=== PATIENT | female | born 1945 | race Caucasian/White ===

== ENCOUNTER 2016-12-02 11:06 | Outpatient (CLI) | payer MEDICARE, OTHER | END 2016-12-02 11:07 | disposition home or self-care (01) | DX: M16.12 Unilateral primary osteoarthritis, left hip (principal) ==

== ENCOUNTER 2017-01-14 06:03 | Day surgery (SDC) | payer MEDICARE, OTHER ==
[2017-01-14] MEDS ORDERED: LACTATED RINGERS 500 ML IV ONE (06:35)
[2017-01-14] MEDS ORDERED: TROPICAMIDE 1% OPHTH 2 ML DROPS OPTH ONE (06:43)
[2017-01-14] MEDS ORDERED: KETOROLAC 0.45% OPHTH DROPS OPTH ONE (06:43)
[2017-01-14] MEDS ORDERED: CYCLOPENTOLATE 1% OPHTH DROPS 2 ML OPTH ONE (06:43)
[2017-01-14] MEDS ORDERED: fentaNYL 100 MCG/2 ML VIAL IVP ONE (07:05)
[2017-01-14] MEDS ORDERED: MIDAZOLAM 2 MG/2 ML VIAL IVP ONE (07:05)
[2017-01-14] MEDS ORDERED: NEOMYCIN/POLYMYX/DEXAMETH OPHTH OINT OPTH ONE (07:43)
[2017-01-14] MEDS ORDERED: BRIMONIDINE 0.2% OPHTH DROPS 5 ML OPTH ONE (07:43)
[2017-01-14] MEDS ORDERED: EPINEPHrine 1 MG/ML AMP IO ONE (07:43)
[2017-01-14] MEDS ORDERED: PROPARACAINE 0.5% OPHTH DROPS 15 ML OPTH ONE (07:43)
[2017-01-14] MEDS ORDERED: TETRACAINE 0.5% OPHTH DROPS 4 ML LEFTEYE ONE (07:44)
[2017-01-14] MEDS ORDERED: BSS/LIDOCAINE/EPINEPHRINE 1 ML SYRINGE IO ONE ×2 (07:44)
[2017-01-14] MEDS ORDERED: CHONDR SULF/HYALURONATE SYRINGE IO ONE (07:44)
== END 2017-01-14 06:04 | disposition home or self-care (01) ==
PROC: 08RK3JZ Replacement of Left Lens with Synthetic Substitute, Percutaneous Approach (ICD-10-PCS; principal; 2017-01-14 07:30)
DX: E11.36 Type 2 diabetes mellitus with diabetic cataract (principal); H25.12 Age-related nuclear cataract, left eye; J44.9 Chronic obstructive pulmonary disease, unspecified; Z79.84 Long term (current) use of oral hypoglycemic drugs; Z90.49 Acquired absence of other specified parts of digestive tract; Z95.5 Presence of coronary angioplasty implant and graft; Z79.82 Long term (current) use of aspirin; Z87.891 Personal history of nicotine dependence; Z95.0 Presence of cardiac pacemaker
CPT/HCPCS: 66984; V2632

== ENCOUNTER 2017-06-15 11:38 | Day surgery (SDC) | payer MEDICARE, OTHER ==
[2017-06-15] MEDS ORDERED: LACTATED RINGERS 1,000 ML IV ONE (12:45)
[2017-06-15] MEDS ORDERED: fentaNYL 100 MCG/2 ML VIAL IVP ONE (14:08)
[2017-06-15] MEDS ORDERED: MIDAZOLAM 2 MG/2 ML VIAL IVP ONE (14:08)
[2017-06-15 15:18] VITALS: BP 102/70
== END 2017-06-15 11:39 | disposition home or self-care (01) ==
LOC: SDS 11:38
PROVIDERS: ATTEND Surgery
PROC: 0DJD8ZZ Inspection of Lower Intestinal Tract, Via Natural or Artificial Opening Endoscopic (ICD-10-PCS; principal; 2017-06-15 13:15)
DX: Z85.048 Personal history of other malignant neoplasm of rectum, rectosigmoid junction, and anus (principal); Z95.0 Presence of cardiac pacemaker; E11.9 Type 2 diabetes mellitus without complications; I50.9 Heart failure, unspecified; J45.909 Unspecified asthma, uncomplicated; Z79.02 Long term (current) use of antithrombotics/antiplatelets; Z87.891 Personal history of nicotine dependence
CPT/HCPCS: 44388; J7120

== ENCOUNTER 2017-10-20 09:27 | Outpatient (CLI) | payer MEDICARE, OTHER, MEDICAID ==
[2017-10-20 09:56] LABS: BASOPHILS # (AUTO) 0.1 10^3/uL (0.0-0.1); BASOPHILS % (AUTO) 1.2 %; EOSINOPHILS # (AUTO) 0.2 10^3/uL (0.0-0.7); EOSINOPHILS % (AUTO) 2.3 %; HGB - HEMOGLOBIN 12.9 g/dL (12.0-16.0); LYMPHOCYTES # (AUTO) 1.5 10^3/uL (1.5-3.5); LYMPHOCYTES % (AUTO) 13.6 %; MEAN CORPUSCULAR HEMOGLOBIN 28.5 pg (27.0-31.0); MEAN CORPUSCULAR HGB CONC 32.6 g/dL (32.0-36.0); MEAN CORPUSCULAR VOLUME 87.5 fL (81.0-99.0); MEAN PLATELET VOLUME 8.8 fL (7.9-10.8); MONOCYTES # (AUTO) 0.7 10^3/uL (0.0-1.0); MONOCYTES % (AUTO) 6.9 %; NEUTROPHILS # (AUTO) 8.1 10^3/uL (1.5-6.6); PLT - PLATELET COUNT 232 10^3/uL (130-450); RED BLOOD COUNT 4.52 10^6/uL (4.20-5.40); RED CELL DISTRIBUTION WIDTH 15.2 % (12.0-15.0); WHITE BLOOD COUNT 10.7 x10^3/uL (4.8-10.8)
[2017-10-20 10:12] LABS: ALBUMIN 3.7 g/dL (3.2-5.5); ALKALINE PHOSPHATASE 71 IU/L (42-121); ALT ALANINE AMINOTRANSFERASE 13 IU/L (10-60); AST ASPARTATE AMINOTRANSFERASE 15 IU/L (10-42); BILIRUBIN,TOTAL 0.7 mg/dL (0.2-1.0); BUN - BLOOD UREA NITROGEN 14 mg/dL (6-20); CALCIUM 9.6 mg/dL (8.5-10.3); CARBON DIOXIDE - CO2 24 mmol/L (21-32); CHLORIDE 102 mmol/L (101-111); CHOL/HDL RATIO 2.5 (<4.4); CHOLESTEROL 121 mg/dL; CREATININE 0.6 mg/dL (0.4-1.0); GFR - MDRD 98 (>89); GLUCOSE 198 mg/dL (70-100); HB2 TOTAL 14.3 g/dL; HDL CHOLESTEROL 49 mg/dL; HEMOGLOBIN A1C 0.99 g/dL; HEMOGLOBIN A1C % 8.5 % (4.6-6.2); LDL CHOLESTEROL,CALCULATED 53 mg/dL; LDL/HDL RATIO 1.1 (<4.4); SODIUM 137 mmol/L (135-145); TOTAL PROTEIN 7.3 g/dL (6.7-8.2); VLDL CHOLESTEROL 19 mg/dL
== END 2017-10-20 09:28 | disposition home or self-care (01) ==
LOC: LAB 09:27
PROVIDERS: ATTEND Physician Assistant
DX: R73.9 Hyperglycemia, unspecified (principal); R60.9 Edema, unspecified; E78.5 Hyperlipidemia, unspecified; I50.9 Heart failure, unspecified
CPT/HCPCS: 36415; 80053; 80061; 83036; 83721; 83880; 84443; 85025

== ENCOUNTER 2017-11-03 13:32 | Outpatient (CLI) | payer MEDICARE, OTHER, MEDICAID | END 2017-11-03 13:33 | disposition home or self-care (01) | LOC: DI 13:32 | PROVIDERS: ATTEND Physician Assistant | DX: R06.02 Shortness of breath (principal); R63.5 Abnormal weight gain; I50.9 Heart failure, unspecified; R00.0 Tachycardia, unspecified | CPT/HCPCS: 93306 ==

== ENCOUNTER 2017-11-03 13:34 | Outpatient (CLI) | payer MEDICARE, OTHER, MEDICAID ==
[2017-11-03] MEDS ORDERED: IOPAMIDOL-300 100 ML VIAL IVP ONE (18:53)
--- NOTE | 2017-11-04 10:12 | CT Report ---
CT OF THE ABDOMEN WITH AND WITHOUT CONTRAST: 11/03/2017 CLINICAL INDICATION: History of rectal cancer, hypodense nodule in the pancreas. COMPARISON: CT 07/09/2017. TECHNIQUE: Axial CT images of the abdomen were obtained prior to and following 100 mL Isovue 300 intravenously, with images obtained in early arterial and portovenous phase enhancement. FINDINGS: On the unenhanced scan, there is no evidence of pancreatic calcifications. The hypodense nodule in the proximal body of the pancreas is again seen, now measuring 2.7 x 1.5 cm on the arterial phase of enhancement, previously 1.6 x 1.3 cm. A left adrenal adenoma is stable. The liver, spleen, kidneys and right adrenal gland are unremarkable. The patient is status post cholecystectomy. No bowel dilatation, free gas, or free fluid is present. There is a hernia into the left lower quadrant ostomy site, containing nonobstructed loops of small bowel. No free fluid, free gas, or abdominal adenopathy is appreciated. IMPRESSION: INTERVAL INCREASE IN SIZE OF HYPODENSE NODULE IN THE MID BODY OF THE PANCREAS. INTERVAL DEVELOPMENT OF SMALL BOWEL HERNIATION INTO THE LEFT LOWER QUADRANT OSTOMY SITE. In accordance with CT protocol optimization, one or more of the following dose reduction techniques were utilized for this exam: automated exposure control, adjustment of mA and/or KV based on patient size, or use of iterative reconstructive technique. TD: 11/04/2017 10:10
== END 2017-11-03 13:35 | disposition home or self-care (01) ==
LOC: DI 13:34
PROVIDERS: ATTEND Internal Medicine
DX: C20 Malignant neoplasm of rectum (principal); K86.9 Disease of pancreas, unspecified; K46.9 Unspecified abdominal hernia without obstruction or gangrene
CPT/HCPCS: 74160

== ENCOUNTER 2017-11-03 13:40 | Outpatient (CLI) | payer MEDICARE, OTHER, MEDICAID ==
[2017-11-03] MEDS ORDERED: IOPAMIDOL-300 100 ML VIAL ONE (13:52)
--- NOTE | 2017-11-04 10:06 | CT Report ---
CT CHEST WITH CONTRAST: 11/03/2017 CLINICAL INDICATION: Rectal cancer, shortness of breath, pain. TECHNIQUE: Axial CT images of the chest were obtained with 100 mL Isovue 300 intravenously. COMPARISON: 12/22/2015. FINDINGS: The heart and great vessels demonstrate atherosclerotic calcification. No hilar or mediastinal lymphadenopathy is present. The lungs are clear. No pulmonary nodule or mass lesion is seen. No effusion or pneumothorax is present. Osseous structures demonstrate degenerative changes. IMPRESSION: NO EVIDENCE OF PULMONARY METASTATIC DISEASE. NO EVIDENCE OF ACUTE CARDIOPULMONARY DISEASE. In accordance with CT protocol optimization, one or more of the following dose reduction techniques were utilized for this exam: automated exposure control, adjustment of mA and/or KV based on patient size, or use of iterative reconstructive technique. TD: 11/04/2017 10:05
== END 2017-11-03 13:41 | disposition home or self-care (01) ==
LOC: DI 13:40
PROVIDERS: ATTEND Physician Assistant
DX: R06.02 Shortness of breath (principal); C20 Malignant neoplasm of rectum; K86.9 Disease of pancreas, unspecified; K46.9 Unspecified abdominal hernia without obstruction or gangrene; R63.5 Abnormal weight gain; I50.9 Heart failure, unspecified; R00.0 Tachycardia, unspecified; K22.8 Other specified diseases of esophagus
CPT/HCPCS: 71260; 74160; 93306; Q9967

== ENCOUNTER 2017-11-21 12:30 | Outpatient (CLI) | payer MEDICARE, OTHER, MEDICAID ==
--- NOTE | 2017-11-22 09:18 | CT Report ---
EXAM: CT SINUS EXAM DATE: 11/21/2017 01:39 PM. HISTORY: Chronic sinusitis. COMPARISONS: 01/04/2015. TECHNIQUE: Routine multi-axial CT imaging performed through the sinuses. Iodinated IV contrast: None. Reconstructions: Coronal and sagittal. In accordance with CT protocol optimization, one or more of the following dose reduction techniques w ere utilized for this exam: automated exposure control, adjustment of mA and/or KV based on patient s ize, or use of iterative reconstructive technique. FINDINGS: RIGHT Frontal: Normal. Ethmoid: Partial opacification of 2 posterior right ethmoid air cells, as before. Maxillary: Normal. Sphenoid: Minimal mucosal thickening posteriorly in the lateral recess, as before. Drainage Pathways: Frontoethmoidal and sphenoethmoidal recesses are patent. Right uncinectomy normall y aerated, as before. LEFT Frontal: Normal. Ethmoid: Normal. Maxillary: Minimal mucosal thickening anteriorly inferiorly, as before. Sphenoid: Normal. Drainage Pathways: Frontoethmoidal and sphenoethmoidal recesses are patent. Left uncinectomy normally aerated, as before. Nasal Cavity: Normal. No mass or significant anatomic abnormality evident. Osseous Structures: Unremarkable. Orbits: Unremarkable. Other: None. IMPRESSION: 1. Bilateral uncinectomy, as before. 2. Partial opacification of 2 right posterior ethmoid air cells, as before. 3. Minimal mucosal thickening in the right ethmoid and left maxillary sinuses, as before. 4. No new findings. [facility] Referring Provider Line: [phone] SITE ID: [id number]
== END 2017-11-21 12:31 | disposition home or self-care (01) ==
LOC: DI 12:30
PROVIDERS: ATTEND Otolaryngology
DX: J32.8 Other chronic sinusitis (principal); R51 Headache; R09.82 Postnasal drip
CPT/HCPCS: 70486

== ENCOUNTER 2018-01-16 04:36 | Outpatient (CLI) | payer MEDICARE, OTHER, MEDICAID | END 2018-01-16 04:37 | disposition critical access hospital (66) | LOC: EMS 04:36 | PROVIDERS: ATTEND Surgery | DX: R61 Generalized hyperhidrosis (principal); R11.0 Nausea; R03.0 Elevated blood-pressure reading, without diagnosis of hypertension | CPT/HCPCS: A0425; A0429 ==

== ENCOUNTER 2018-01-16 04:41 | Emergency (ER) | payer MEDICARE, OTHER, MEDICAID ==
--- NOTE | 2018-01-16 04:58 | ED Physician Documentation ---
History of Present Illness - Stated complaint Stated Complaint: NAUSEATED - Chief complaint Chief Complaint: General - History obtained from History obtained from: Patient, EMS - History of Present Illness Timing: Today Improved by: no ameliorating factors Worsened by: no exacerbating factors - Additonal information Additional information: awoke this morning with mild nausea, left shoulder pain, and diaphoresis. Took her blood pressure and had readings 200s/100s, similarly high on recheck. Called 911, and medics found blood sugar was 226, blood pressure 160/102. Patient has h/o PR with cor. art. stent, PPM Review of Systems Constitutional: reports: Sweats. denies: Fever, Chills Cardiac: reports: Chest pain / pressure (left shoulder pain, not chest pain per se) Respiratory: reports: Reviewed and negative GI: reports: Nausea. 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 Cardiovascular: Coronary stent, Pacemaker HEENT: Tonsil/Adenoidectomy - Present Medications Home Medications: Ambulatory Orders Medication Instructions Recorded Confirmed Lisinopril [Zestril] 20 mg PO DAILY 08/13/13 01/16/18 Multivitamin [Multivitamins] 1 each PO DAILY 05/23/14 01/16/18 Aspirin [Aspir 81] 81 mg PO DAILY 03/08/15 01/16/18 Carvedilol [Coreg] 25 mg PO BID 06/15/17 01/16/18 Docusate Sodium 1 mg PO DAILY 01/16/18 01/16/18 LORazepam [Ativan] 1 mg PO Q6H 01/16/18 01/16/18 Lisinopril 1 mg PO DAILY 01/16/18 01/16/18 PARoxetine [Paxil] 10 mg PO DAILY 01/16/18 01/16/18 Sertraline [Zoloft] 1 mg PO DAILY 01/16/18 01/16/18 Simvastatin 1 mg PO DAILY 01/16/18 01/16/18 oxyCODONE [Roxicodone] 1 mg PO Q6H 01/16/18 01/16/18 - Allergies Allergies/Adverse Reactions: Allergies Allergy/AdvReac Type Severity Reaction Status Date / Time venom-honey bee Allergy Severe Respiratory Verified 01/16/18 04:49 [bee venom (honey bee)] - Social History Does the pt smoke?: No Smoking Status: Never smoker Does the pt drink ETOH?: No Does the pt have substance abuse?: No - Immunizations Immunizations are current?: Yes - POLST Patient has POLST: No POLST Status: Limited Interventions PD ED PE NORMAL - Vitals Vital signs reviewed: Yes - General General: Alert and oriented X 3, No acute distress, Well developed/nourished - HEENT HEENT: Moist mucous membranes - Neck Neck: Supple, no meningeal sign - Cardiac Cardiac: RRR, No murmur, No gallop, No rub - Respiratory Respiratory: No respiratory distress, Clear bilaterally - Abdomen Abdomen: Soft, Non distended, Other (epigastric tenderness (patient says this is not new and is due to a pancreatic problem that is going to be surgically addressed in near future). she has a colostomy bag in place) - Derm Derm: Normal color, Warm and dry, No rash - Extremities Extremities: No edema Results - Vitals Vitals: Vital Signs - 24 hr 01/16/18 01/16/18 01/16/18 04:46 04:49 05:49 Temperature 36.9 C Heart Rate 93 99 100 Respiratory 18 18 17 Rate Blood Pressure 148/99 H 145/89 H 130/76 O2 Saturation 99 100 97 01/16/18 01/16/18 06:19 06:44 Temperature Heart Rate 100 Respiratory 17 16 Rate Blood Pressure O2 Saturation 98 Oxygen O2 Source Room air - EKG (time done) No standard instances Rate: Rate (enter#) (101), Tachy Rhythm: Sinus tachycardia [place]: LAD Intervals: Normal CA, Wide QRS (NSIVCD) QRS: Normal Ischemia: Normal ST segments, Q waves (III, aVF) - Labs Labs: Laboratory Tests 01/16/18 01/16/18 01/16/18 05:15 05:15 05:15 WBC 8.9 RBC 4.51 Hgb 12.7 Hct 39.6 MCV 88.0 MCH 28.1 MCHC 31.9 L RDW 14.6 Plt Count 249 MPV 8.6 Neut # 6.7 H Lymph # 1.1 L [place] # 0.7 Eos # 0.3 Baso # 0.0 Absolute Nucleated RBC 0.01 Nucleated RBC % 0.1 Sodium 135 Potassium 4.0 Chloride 101 Carbon Dioxide 28 Anion Gap 6.0 BUN 14 Creatinine 0.6 Estimated GFR (MDRD) 98 Glucose 240 H Calcium 9.8 Troponin I < 0.04 - Rads (name of study) chest xray Radiology: Prelim report reviewed, See rad report PD MEDICAL DECISION MAKING - ED course Complexity details: reviewed old records, reviewed results, re-evaluated patient , considered differential, d/w patient Departure - Departure Disposition: 01 Home, Self Care Clinical Impression: Chest pain Qualifiers: Chest pain type: unspecified Qualified Code(s): R07.9 - Chest pain, unspecified Condition: Good Instructions: ED Chest Pain Atypical Unkn Cause Discharge Date/Time: 01/16/18 07:09
[2018-01-16 05:30] LABS: BASOPHILS % (AUTO) 0.5 %; EOSINOPHILS # (AUTO) 0.3 10^3/uL (0.0-0.7); EOSINOPHILS % (AUTO) 3.3 %; HGB - HEMOGLOBIN 12.7 g/dL (12.0-16.0); LYMPHOCYTES # (AUTO) 1.1 10^3/uL (1.5-3.5); LYMPHOCYTES % (AUTO) 12.1 %; MEAN CORPUSCULAR HEMOGLOBIN 28.1 pg (27.0-31.0); MEAN CORPUSCULAR HGB CONC 31.9 g/dL (32.0-36.0); MEAN PLATELET VOLUME 8.6 fL (7.9-10.8); MONOCYTES # (AUTO) 0.7 10^3/uL (0.0-1.0); MONOCYTES % (AUTO) 8.3 %; NEUTROPHILS # (AUTO) 6.7 10^3/uL (1.5-6.6); NEUTROPHILS % (AUTO) 75.8 %; PLT - PLATELET COUNT 249 10^3/uL (130-450); RED BLOOD COUNT 4.51 10^6/uL (4.20-5.40); RED CELL DISTRIBUTION WIDTH 14.6 % (12.0-15.0); WHITE BLOOD COUNT 8.9 x10^3/uL (4.8-10.8)
[2018-01-16 05:36] LABS: CALCIUM 9.8 mg/dL (8.5-10.3); CREATININE 0.6 mg/dL (0.4-1.0)
[2018-01-16 05:51] VITALS: BP 130/76
--- NOTE | 2018-01-16 06:14 | XRAY Report ---
EXAM: CHEST RADIOGRAPHY EXAM DATE: 01/16/2018 05:46 AM. CLINICAL HISTORY: Chest pain. COMPARISON: 11/03/2017 CT, 07/03/2016 x-ray. TECHNIQUE: 2 views. FINDINGS: Lungs/Pleura: No focal pneumonia or edema. No pleural effusion or pneumothorax. Mediastinum: Heart size not enlarged. No mediastinal shift. Other: Stable left pacemaker. IMPRESSION: No acute process seen in the chest. [facility] Referring Provider Line: [phone] SITE ID: [id number]
== END 2018-01-16 07:09 | disposition home or self-care (01) ==
LOC: EDUNIT# → ED 04:41
DX: R07.9 Chest pain, unspecified (principal); I25.2 Old myocardial infarction; E10.9 Type 1 diabetes mellitus without complications; J44.9 Chronic obstructive pulmonary disease, unspecified; M79.7 Fibromyalgia; Z95.0 Presence of cardiac pacemaker; Z79.82 Long term (current) use of aspirin
CPT/HCPCS: 36415; 71046; 80048; 84484; 85025; 93005; 99283; 99284

== ENCOUNTER 2018-03-02 | Outpatient (CLI) | END 2018-03-02 13:30 | disposition critical access hospital (66) | CPT/HCPCS: A0425; A0427 ==

== ENCOUNTER 2018-03-02 13:36 | Inpatient (IN) | payer MEDICARE, OTHER, MEDICAID ==
--- NOTE | 2018-03-02 13:50 | ED Physician Documentation ---
PD HPI DYSPNEA - Stated complaint Stated Complaint: SOA - Chief complaint Chief Complaint: General - History obtained from History obtained from: Patient - History of Present Illness Timing - onset: Today Timing - onset during: Rest (she had feeling of dyspnea, weakness and found to have low BP in 60s systolic. Sent from [facility] to here for evaluation. Just discharged from [place] 2 days ago post abd surgery.) Timing - duration: Days (1) Timing - details: Gradual onset, Still present Inciting event(s): No: Out of meds, URI, Immobilization/travel Improved by: O2 Associated symptoms: Unilateral edema (she feels her left leg is swollen and having some pain in left leg.). No: Fever, Cough, Wheezing, Chest pain / discomfort Similar symptoms before: No diagnosis (treated for possible infection with Cipro and Flagyl and IV fluids when had lower BP during hospital course recently (on the ).) Recently seen: Surgery (In [place] with surgery for removal of pancreatic tumor , with subsequent hospital course of an episode of hypotension concerning for sepsis, treated with fluids, antibiotics. Had small lung effusion with question of pneumonia. Was treated for possible GI infection with Cipro and Flagyl. Dx with splenic infarction on CT as well. had elevated white count 20K and low blood count 8.8 Hgb. Discharrged on 02/28 to [facility] for Rehab and recovery. Noted today to have dyspnea and low BP. She says she has not been out of bed there nor any PT/Rehab per se as yet, as only been there 1 1/2 days.) Review of Systems Constitutional: reports: Myalgias, Fatigue (since surgery 19 days ago). denies : Fever Nose: denies: Rhinorrhea / runny nose, Congestion Throat: denies: Sore throat Cardiac: reports: Calf pain (left). denies: Chest pain / pressure, Palpitations Respiratory: reports: Dyspnea. denies: Cough, Wheezing GI: reports: Abdominal Pain (for past few months), Nausea. denies: Vomiting, Diarrhea : reports: Incontinent. denies: Dysuria Skin: denies: Rash, Lesions Neurologic: reports: Generalized weakness. 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 Cardiovascular: Coronary stent, Pacemaker HEENT: Tonsil/Adenoidectomy - Present Medications Home Medications: Ambulatory Orders Medication Instructions Recorded Confirmed Aspirin [Aspir 81] 81 mg PO DAILY 03/08/15 03/02/18 Carvedilol [Coreg] 25 mg PO BID 06/15/17 03/02/18 Acetaminophen 650 mg PO Q4H PRN 03/02/18 03/02/18 Atorvastatin Calcium 40 mg PO QPM 03/02/18 03/02/18 Budesonide/Formoterol Fumarate 2 puffs INH BID 03/02/18 03/02/18 [Symbicort 160-4.5 Mcg Inhaler] Citalopram Hydrobromide 20 mg PO DAILY 03/02/18 03/02/18 [Citalopram HBr] Docusate Sodium 100 mg PO BID PRN 03/02/18 03/02/18 Fluticasone [Flonase] 1 spray ROD BID 03/02/18 03/02/18 Folic Acid 1 mg PO DAILY 03/02/18 03/02/18 Insulin Glargine [Lantus Solostar] 18 units SUBQ QPM 03/02/18 03/02/18 Insulin Lispro [Humalog] 3 units SUBQ TIDWM 03/02/18 03/02/18 Lipase/Protease/Amylase [Creon Dr 1 tab PO TIDWM 03/02/18 03/02/18 6,000 Units Capsule] Lisinopril 20 mg PO DAILY 03/02/18 03/02/18 Mag Hydrox/Al Hydrox/Simeth 30 ml PO Q6H PRN 03/02/18 03/02/18 [Antacid Suspension] Magnesium Oxide [Mag Ox] 400 mg PO DAILY 03/02/18 03/02/18 Methocarbamol 500 - 1,500 mg PO TID PRN 03/02/18 03/02/18 Mirabegron [Myrbetriq] 25 mg PO DAILY 03/02/18 03/02/18 Multivitamin W/Minerals [Theragran 1 tab PO DAILY 03/02/18 03/02/18 M] Ondansetron [Ondansetron Odt] 4 mg PO Q6H PRN 03/02/18 03/02/18 Oxycodone HCl 2.5 - 10 mg PO Q3H PRN 03/02/18 03/02/18 - Allergies Allergies/Adverse Reactions: Allergies Allergy/AdvReac Type Severity Reaction Status Date / Time venom-honey bee Allergy Severe Respiratory Verified 01/16/18 04:49 [bee venom (honey bee)] - Social History Does the pt smoke?: No Smoking Status: Never smoker Does the pt drink ETOH?: No Does the pt have substance abuse?: No - Family History Family history: reports: Non contributory - Immunizations Immunizations are current?: Yes - POLST Patient has POLST: No POLST Status: Limited Interventions PD ED PE NORMAL - Vitals Vital signs reviewed: Yes (low bp initially but responded to initial fluid boluses. no fever.) - General General: Alert and oriented X 3, No acute distress, Well developed/nourished - HEENT HEENT: Atraumatic, Pharynx benign - Neck Neck: Supple, no meningeal sign, No adenopathy, No JVD - Cardiac Cardiac: RRR, No murmur - Respiratory Respiratory: No respiratory distress (faster resp rate, but not labored nor accessory muscule use. ). No: Clear bilaterally (some coarse sounds left base. ) - Abdomen Abdomen: Normal bowel sounds, Non distended, No organomegaly, Other (tenderness around incision areas, which are normal color and no warmth nor drainage. No signs of infection. Right lower colostomy with output that has some dark colored melena looking watery content. No skinny blood. ) - Female Female : Deferred - Rectal Rectal: Deferred - Back Back: No CVA TTP - Derm Derm: No: Normal color (some pallor) - Extremities Extremities: No tenderness to palpate, Normal ROM s pain, No edema, Other (left calf with some tenderness, but no overt edema. 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, No motor deficit, No sensory deficit, Normal speech Results - Vitals Vitals: Vital Signs - 24 hr 03/02/18 03/02/18 03/02/18 13:38 13:48 13:56 Temperature 37.3 C Heart Rate 76 75 69 Respiratory 18 26 H 24 Rate Blood Pressure 103/79 89/62 L 101/55 L O2 Saturation 98 99 99 03/02/18 03/02/18 03/02/18 14:16 14:36 14:38 Temperature Heart Rate 81 70 86 Respiratory 23 29 H 30 H Rate Blood Pressure 114/66 92/63 O2 Saturation 96 96 03/02/18 03/02/18 14:58 15:42 Temperature Heart Rate 72 80 Respiratory 21 21 Rate Blood Pressure 82/73 L 114/61 O2 Saturation 96 94 Oxygen O2 Source Room air - Labs Labs: Laboratory Tests 03/02/18 03/02/18 03/02/18 14:20 14:20 14:20 WBC 25.8 H RBC 3.36 L Hgb 9.2 L Hct 30.1 L MCV 89.6 MCH 27.5 MCHC 30.7 L RDW 15.3 H Plt Count 467 H MPV 9.4 Neut # (Auto) 23.0 H Lymph # (Auto) 0.7 L [place] # (Auto) 1.9 H Eos # (Auto) 0.1 Baso # (Auto) 0.1 Absolute Nucleated RBC 0.12 Band Neuts % (Manual) Not Reportable Abnorm Lymph % (Manual) Not Reportable Nucleated RBC % 0.5 Neutrophils # (Manual) Not Reportable Lymphocytes # (Manual) Not Reportable Monocytes # (Manual) Not Reportable Eosinophils # (Manual) Not Reportable Basophils # (Manual) Not Reportable Differential Comment MANUAL=AUTO DIFF Manual Slide Review Indicated Platelet Estimate INCREASED (>450,000) Platelet Morphology NORMAL APPEARANCE RBC Morph Micro Appear 1+ MICROCYTOSIS Sodium 139 Potassium 3.2 L Chloride 107 Carbon Dioxide 29 Anion Gap 3.0 L BUN 10 Creatinine 0.8 Estimated GFR (MDRD) 70 L Glucose 191 H Lactic Acid 1.4 Calcium 7.5 L Magnesium 1.9 Total Bilirubin 0.3 AST 17 ALT 12 Alkaline Phosphatase 81 Troponin I B-Natriuretic Peptide Total Protein 5.1 L Albumin 1.8 L Globulin 3.3 Albumin/Globulin Ratio 0.5 L Lipase 70 H Blood Type Blood Type Recheck Antibody Screen 03/02/18 03/02/18 03/02/18 14:20 14:20 14:20 WBC RBC Hgb Hct MCV MCH MCHC RDW Plt Count MPV Neut # (Auto) Lymph # (Auto) [place] # (Auto) Eos # (Auto) Baso # (Auto) Absolute Nucleated RBC Band Neuts % (Manual) Abnorm Lymph % (Manual) Nucleated RBC % Neutrophils # (Manual) Lymphocytes # (Manual) Monocytes # (Manual) Eosinophils # (Manual) Basophils # (Manual) Differential Comment Manual Slide Review Platelet Estimate Platelet Morphology RBC Morph Micro Appear Sodium Potassium Chloride Carbon Dioxide Anion Gap BUN Creatinine Estimated GFR (MDRD) Glucose Lactic Acid Calcium Magnesium Total Bilirubin AST ALT Alkaline Phosphatase Troponin I < 0.04 B-Natriuretic Peptide 258 H Total Protein Albumin Globulin Albumin/Globulin Ratio Lipase Blood Type Blood Type Recheck O POSITIVE Antibody Screen 03/02/18 14:55 WBC RBC Hgb Hct MCV MCH MCHC RDW Plt Count MPV Neut # (Auto) Lymph # (Auto) [place] # (Auto) Eos # (Auto) Baso # (Auto) Absolute Nucleated RBC Band Neuts % (Manual) Abnorm Lymph % (Manual) Nucleated RBC % Neutrophils # (Manual) Lymphocytes # (Manual) Monocytes # (Manual) Eosinophils # (Manual) Basophils # (Manual) Differential Comment Manual Slide Review Platelet Estimate Platelet Morphology RBC Morph Micro Appear Sodium Potassium Chloride Carbon Dioxide Anion Gap BUN Creatinine Estimated GFR (MDRD) Glucose Lactic Acid Calcium Magnesium Total Bilirubin AST ALT Alkaline Phosphatase Troponin I B-Natriuretic Peptide Total Protein Albumin Globulin Albumin/Globulin Ratio Lipase Blood Type O POSITIVE Blood Type Recheck Antibody Screen NEGATIVE - Rads (name of study) chest xray Radiology: Prelim report reviewed (effusion and some atelectasis left base vs. pneumonia. ) duplex left lower ext Radiology: Prelim report reviewed (no DVT.) abd/pelvic CT Radiology: Prelim report reviewed (did not get CT results prior to her going to ICU. ) PD MEDICAL DECISION MAKING - ED course Complexity details: reviewed old records (faxed from [place]), reviewed results , re-evaluated patient (her BP improved with some IV fluids then was lower again. Given IV fluids more. She had initial labs and imaging without event. Her BP continued to dip without ongoing fluids. Started low dose Norepi and had Anesth consulted for Central Line. Labs are similar to recent admission in [place] (WBC 20K-magali and anemia 9.2). ), considered differential, d/w patient, d /w warehouse consultant (Dr. Donahue, surgeon in [place], was away on vacation, and I talked with covering Surgeon, who suggested abd CT and otherwise defers to Medicine/Hospitalist. [facility] did not have any beds for transfer. patient did not wish to be transferred to other hospitals. I talked with our Hospitalist , who will admit the patient here. ) - Critical Care Time(min): 50 Time Includes: Direct patient care, Review records, Document care, Coordinate care, Medical consult Data interpretation: Labs, Pulse ox, CXR Procedures excluded from critical care time: EKG - Sepsis Event Vital Signs: Vital Signs - 24 hr 03/02/18 03/02/18 03/02/18 13:38 13:48 13:56 Temperature 37.3 C Heart Rate 76 75 69 Respiratory 18 26 H 24 Rate Blood Pressure 103/79 89/62 L 101/55 L O2 Saturation 98 99 99 03/02/18 03/02/18 03/02/18 14:16 14:36 14:38 Temperature Heart Rate 81 70 86 Respiratory 23 29 H 30 H Rate Blood Pressure 114/66 92/63 O2 Saturation 96 96 03/02/18 03/02/18 14:58 15:42 Temperature Heart Rate 72 80 Respiratory 21 21 Rate Blood Pressure 82/73 L 114/61 O2 Saturation 96 94 Oxygen O2 Source Room air Departure - Departure Disposition: 66 [facility] DC/Xfer Clinical Impression: Post-operative state, Pleural effusion Hypotension Qualifiers: Hypotension type: unspecified hypotension type Qualified Code(s): I95.9 - Hypotension, unspecified Dyspnea Qualifiers: Dyspnea type: shortness of breath Qualified Code(s): R06.02 - Shortness of breath Anemia Qualifiers: Anemia type: unspecified type Qualified Code(s): D64.9 - Anemia, unspecified Leukocytosis Qualifiers: Leukocytosis type: unspecified Qualified Code(s): D72.829 - Elevated white blood cell count, unspecified Condition: Serious Discharge Date/Time: 03/02/18 17:34
[2018-03-02] MEDS ORDERED: ALBUTEROL NEB 2.5 MG/3 ML INH STA (14:18)
[2018-03-02 14:31] LABS: BASOPHILS # (AUTO) 0.1 10^3/uL (0.0-0.1); BASOPHILS % (AUTO) 0.5 %; EOSINOPHILS # (AUTO) 0.1 10^3/uL (0.0-0.7); EOSINOPHILS % (AUTO) 0.3 %; HGB - HEMOGLOBIN 9.2 g/dL (12.0-16.0); LYMPHOCYTES # (AUTO) 0.7 10^3/uL (1.5-3.5); LYMPHOCYTES % (AUTO) 2.8 %; MEAN CORPUSCULAR HEMOGLOBIN 27.5 pg (27.0-31.0); MEAN CORPUSCULAR HGB CONC 30.7 g/dL (32.0-36.0); MEAN CORPUSCULAR VOLUME 89.6 fL (81.0-99.0); MEAN PLATELET VOLUME 9.4 fL (7.9-10.8); MONOCYTES # (AUTO) 1.9 10^3/uL (0.0-1.0); MONOCYTES % (AUTO) 7.3 %; NEUTROPHILS % (AUTO) 89.1 %; PLT - PLATELET COUNT 467 10^3/uL (130-450); RED BLOOD COUNT 3.36 10^6/uL (4.20-5.40); RED CELL DISTRIBUTION WIDTH 15.3 % (12.0-15.0); WHITE BLOOD COUNT 25.8 x10^3/uL (4.8-10.8)
[2018-03-02 14:48] LABS: ALBUMIN 1.8 g/dL (3.2-5.5); ALBUMIN/GLOBULIN RATIO 0.5 (1.0-2.2); BILIRUBIN,TOTAL 0.3 mg/dL (0.2-1.0); CALCIUM 7.5 mg/dL (8.5-10.3); CREATININE 0.8 mg/dL (0.4-1.0); MAGNESIUM 1.9 mg/dL (1.7-2.8); TOTAL PROTEIN 5.1 g/dL (6.7-8.2)
--- NOTE | 2018-03-02 14:51 | XRAY Report ---
Procedure Date: 03/02/2018 Accession Number: [id number] / [id number] Procedure: XR - Chest 1 View X-Ray CPT Code: 85656 FULL RESULT: EXAM: CHEST RADIOGRAPHY EXAM DATE: 03/02/2018 02:30 PM. CLINICAL HISTORY: Dyspnea; post op 2 1/2 weeks. COMPARISON: 01/16/2018. TECHNIQUE: 1 view. FINDINGS: Lungs/Pleura: Layering opacity in the left hemithorax. Right lung appears clear. No pneumothorax. Mediastinum: There is a left chest pacemaker device. The leads appear unchanged overlying the right atrium and right ventricle. Heart size is borderline. There is mild/moderate aortic atherosclerotic calcification. Other: None. IMPRESSION: New layering left pleural effusion of [id number] size with left lower lobe atelectasis, edema or pneumonia. [facility]
[2018-03-02] MEDS ORDERED: SODIUM CHLORIDE 0.9% 1,000 ML IV ONE ×3 (14:55→16:48)
[2018-03-02 14:57] LABS: DIFFERENTIAL COMMENT MANUAL=AUTO DIFF; PLATELET ESTIMATE, MANUAL INCREASED (>450,000) (NORMAL); PLATELET MORPHOLOGY NORMAL APPEARANCE (NORMAL)
--- NOTE | 2018-03-02 15:32 | Ultrasound Report ---
Procedure Date: 03/02/2018 Accession Number: [id number] / [id number] Procedure: US - Duplex Ext Veins Left CPT Code: FULL RESULT: EXAM: Duplex Ext Veins Left DATE: 03/02/2018 3:21 PM CLINICAL HISTORY: left leg pain; post op 2 1/2 weeks COMPARISON: None. TECHNIQUE: Real-time sonographic vascular imaging was performed by the cath lab through the lower extremity utilizing both color-flow and Doppler spectral analysis. Multiple business process representative static images were saved for review. FINDINGS: Left side Common Femoral Vein (CFV): Normal. Superficial Femoral Vein (SFV) Prox: Normal. Superficial Femoral Vein (SFV) Mid: Normal. Superficial Femoral Vein (SFV) Dist: Normal. Popliteal Vein: Normal. Posterior Tibial Veins: Normal. Peroneal Veins: Normal. Other: None. IMPRESSION: No evidence for deep venous thrombosis left lower extremity. [facility]
[2018-03-02] MEDS ORDERED: levoFLOXacin 750 MG/150 ML 750 MG/150 ML BAG IV ONE (15:51)
[2018-03-02] MEDS ORDERED: CALCIUM GLUCONATE 1,000 MG in SODIUM CHLORIDE 0.9% 50 ML IV STA (16:16)
[2018-03-02] MEDS ORDERED: IOPAMIDOL-300 100 ML VIAL ONE (16:47)
[2018-03-02] MEDS ORDERED: ACETAMINOPHEN 325 MG TABLET PO PRN (16:56)
[2018-03-02] MEDS ORDERED: ONDANSETRON 4 MG/2 ML VIAL IVP PRN (16:56)
[2018-03-02] MEDS ORDERED: D5NS W/20 MEQ KCL 1,000 ML IV SCH (17:00)
[2018-03-02] MEDS ORDERED: VANCOMYCIN INJ 1 GM in SODIUM CHLORIDE 0.9% 500 ML IV STA (17:03)
[2018-03-02] MEDS ORDERED: IOPAMIDOL-300 100 ML VIAL IVP ONE (17:54)
--- NOTE | 2018-03-02 18:00 | XRAY Report ---
Procedure Date: 03/02/2018 Accession Number: [id number] / [id number] Procedure: XR - Chest for Line Placement CPT Code: FULL RESULT: EXAM: CHEST RADIOGRAPHY EXAM DATE: 03/02/2018 05:35 PM. CLINICAL HISTORY: Right IJ triple lumen placed for hypotension. COMPARISON: CT of same day. TECHNIQUE: 1 view. FINDINGS: Lungs/Pleura: Diffuse hazy opacification of the left lung with moderate left pleural effusion and adjoining lung opacification. Right lung appears clear. There is no pneumothorax. Mediastinum: Heart and mediastinal contours are unremarkable. Other: Right IJ line tip terminates at least within the mid SVC. Tip is obscured by pacer lines IMPRESSION: Right IJ line tip terminates at least within the mid SVC. Tip is obscured by pacer lines. Left pleural effusion and adjoining likely atelectasis, better demonstrated on CT of same day. [facility]
--- NOTE | 2018-03-02 18:36 | CT Report ---
Procedure Date: 03/02/2018 Accession Number: [id number] / [id number] Procedure: CT - Abdomen/Pelvis W/ CPT Code: FULL RESULT: EXAM: CT ABDOMEN AND PELVIS EXAM DATE: 03/02/2018 05:51 PM. CLINICAL HISTORY: Low BP; post op pancreatic surgery. COMPARISONS: 11/03/17. TECHNIQUE: Routine helical CT imaging was performed through the abdomen and pelvis. IV contrast: ISOVUE 300 100mL. Enteric contrast: No. Reconstructions: Coronal and sagittal. In accordance with CT protocol optimization, one or more of the following dose reduction techniques were utilized for this exam: automated exposure control, adjustment of mA and/or KV based on patient size, or use of iterative reconstructive technique. FINDINGS: ABDOMEN: Liver: Unremarkable. Spleen: The spleen is newly hypoenhancing and enlarged, with small amount of peripheral enhancement remaining. Splenic artery and vein are not visualized. Pancreas: Status post mid body pancreatic resection. Portion of the pancreatic tail is present. Pancreatic head remains. There is a new 15.7 x 9.0 cm fluid collection in the resection bed. Gallbladder/Bile Ducts: Status post cholecystectomy. Biliary tree is normal caliber. Adrenal Glands: Stable 2.4 cm nodule in the left adrenal gland, unchanged since at least 2014, likely benign. Right adrenal gland is unremarkable. Kidneys: No mass, calculi, or hydronephrosis. Peritoneum/Mesentery/Bowel: New 15.7 x 9.0 cm fluid collection in the resection bed. Left lower quadrant colostomy is present with parastomal hernia containing nonobstructed bowel. Lymph nodes: No mesenteric, periportal, or retroperitoneal lymphadenopathy. Vasculature: Abdominal aorta is nonaneurysmal. There is nonocclusive thrombus in the portal vein. Hepatic veins are patent. PELVIS: The bladder is unremarkable for the degree of distention. Uterus is absent. Small amount of free fluid. Cecum is within the pelvis. Nonspecific presacral thickening is present, similar to prior from . No pelvic lymphadenopathy. Status post resection of the rectum and sigmoid. End colostomy in the left lower quadrant. Bones: No suspicious osseous lesions. IMPRESSION: Diffuse splenic infarction. Status post pancreatic body resection. Large fluid collection in the pancreatic resection bed. It is uncertain to what extent this reflects a postoperative seroma, infection and/or pancreatic duct leak. Nonocclusive thrombus in the portal vein. Discussed with Dr. Gasca on 03/02/18 at 6:33 PM. RADIA
--- NOTE | 2018-03-02 18:36 | CT Report ---
Procedure Date: 03/02/2018 Accession Number: [id number] / [id number] Procedure: CT - Chest W/ CPT Code: FULL RESULT: EXAM: CT CHEST EXAM DATE: 03/02/2018 05:51 PM. CLINICAL HISTORY: Effusion and infiltrate left lung. COMPARISONS: 11/03/17. TECHNIQUE: Routine helical CT imaging was performed through the chest. IV contrast: 100 cc Isovue-300. Reconstructions: Coronal and sagittal. In accordance with CT protocol optimization, one or more of the following dose reduction techniques were utilized for this exam: automated exposure control, adjustment of mA and/or KV based on patient size, or use of iterative reconstructive technique. FINDINGS: Lungs/Pleura: New large left pleural effusion. There is near complete collapse of the left lower lobe and partial collapse of the lingula. Trace right pleural fluid with dependent atelectasis. Mediastinum: Imaged portions of the thyroid demonstrate ill-defined subcentimeter nodularity, likely benign. Thoracic aorta and main pulmonary artery are normal caliber.No central PE. Heart size is within normal limits. Coronary artery calcifications are present. Pacer device with leads in the right atrial appendage and right ventricle. No pericardial effusion. Lymph Nodes: No mediastinal, hilar, or axillary adenopathy. Bones: No suspicious osseous lesions. Multilevel degenerative changes. Visualized chest wall is grossly unremarkable. IMPRESSION: New large left pleural effusion. Near complete collapse of the left lower lobe and partial collapse in the lingula. RADIA The above findings were discussed with Dr. Gasca by Dr. Jake Hauser at 18:35 hrs on 03/02/18.
[2018-03-02] MEDS ORDERED: PROPOFOL 200 MG/20 ML VIAL IVP ONE (18:51)
[2018-03-02] MEDS ORDERED: SODIUM CHLORIDE 0.9% 2,000 ML IV ONE (18:52)
[2018-03-02] MEDS ORDERED: MIDAZOLAM 2 MG/2 ML VIAL ONE (18:52)
[2018-03-02] MEDS ORDERED: SODIUM CHLORIDE FLUSH 0.9% 10 ML SYRINGE ONE (18:53)
[2018-03-02] MEDS ORDERED: PROPOFOL 1000 MG/100 ML 100 ML IV ONE (18:57)
[2018-03-02] MEDS ORDERED: ALBUTEROL NEB 2.5 MG/3 ML INH PRN (19:04)
[2018-03-02] MEDS: PHENYLEPHRINE 20 MG in SODIUM CHLORIDE 0.9% 248 ML IV ONE ×3 (19:11→23:16)
[2018-03-02] MEDS: SODIUM CHLORIDE FLUSH 0.9% 10 ML SYRINGE IVP SCH (19:15)
[2018-03-02] MEDS: PROPOFOL 1000 MG/100 ML 100 ML IV SCH (20:43)
[2018-03-02] MEDS: D5.45NS W/20 MEQ KCL 1,000 ML IV SCH (20:57)
[2018-03-02 21:18] LABS: ABG BASE EXCESS -5.3 mmol/L (-2.0-3.0); ABG HCO3 21.4 mmol/L (22.0-26.0); ABG OXYGEN SATURATION 99 % (94-98); ABG PCO2 47 mmHg (34-45); ABG PH 7.28 (7.35-7.45); ABG TCO2 22.8 MMOL/L (21.0-29.0)
[2018-03-02 21:19] LABS: ALLEN TEST POSITIVE
[2018-03-02] MEDS: PANTOPRAZOLE 40 MG VIAL IVP SCH (21:19)
[2018-03-02] MEDS: SODIUM CHLORIDE FLUSH 0.9% 10 ML SYRINGE IVP PRN (21:21)
[2018-03-02 21:22] LABS: ABG PO2 206 mmHg (80-100)
--- NOTE | 2018-03-03 00:02 | HISTORY & PHYSICAL EXAMINATION ---
DATE OF SERVICE: 03/02/2018 Physician: Fara Green MD HISTORY OF PRESENT ILLNESS: This is a 72-year-old white female with a history of obesity, COPD, prior NV, CHF, ejection fraction is not known, she was diagnosed with a pancreatic tumor and underwent partial resection of the tumor on 02/11/2018 at [facility]. Postop complications were bleeding internally, healthcare-associated pneumonia, sepsis , she developed diabetes, she had a cardiac arrest. The patient eventually stabilized at [facility], was transferred to [facility] for rehabilitation on oral antibiotics. She was there for approximately two days, it is unknown how much activity or participation she had in her rehab, but she started to develop shortness of breath and was severely short of breath earlier today and hypotensive and brought to the emergency room. In the emergency room , her blood pressure was in the 90s, heart rate of 70-100. She was afebrile. She received saline fluid resuscitation, blood pressure improved to about 110. The emergency room doctor reached out to the surgeon at [facility] and reviewed the case. There were no beds available for transfer for her there; however, the surgeon also said that this was probably a medical complication and that she could be handled locally here. The patient was admitted to the ICU. PAST MEDICAL HISTORY 1. Obesity. 2. COPD. 3. CHF. 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 5. 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 6. 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 7. Postoperative bleeding. 8. Splenic infarct. 9. Postop sepsis and pneumonia. FAMILY HISTORY: No inherited diseases. SOCIAL HISTORY: She never smoked, never drank alcohol to excess, used no excessive illicit drugs. MEDICATIONS 1. Reglan p.r.n. 2. Tylenol p.r.n. 3. Oxycodone p.r.n. 4. Methocarbamol p.r.n. 5. Magnesium hydroxide daily. 6. Colace daily. 7. Creon 6000 unit capsule t.i.d. 8. Humalog insulin 3 units subcutaneous t.i.d. with meals. 9. Lantus insulin 18 units subcutaneous every evening. 10. Folic acid. 11. Lisinopril 20 mg daily. 12. Myrbetriq 25 mg daily. 13. Multivitamin daily. 14. Formoterol inhaler 2 puffs b.i.d. 15. Coreg 25 b.i.d. 16. Magnesium oxide 400 daily. ALLERGIES: HONEY BEES AND BEE VENOM. REVIEW OF SYSTEMS: This was obtained from record in chart review and discussion with the emergency room doctor. A comprehensive review of systems was performed and the pertinent positives are in the HPI, the rest are negative. The respiratory therapist told me that in the emergency room, the blood pressure dropped and the patient required Trendelenburg position, the patient did feel better after a nebulizer treatment. PHYSICAL EXAMINATION GENERAL: Obese white female. She appears pale, her skin is diaphoretic. She is in severe respiratory distress. VITAL SIGNS: Blood pressure 136/67, pulse of 96 in sinus rhythm, afebrile, room air saturation 93% on 4 liters nasal cannula. HEENT: Reveals moist oral mucosa. NECK: Without JVD, but neck is obese. CHEST: Diminished breath sounds diffusely. HEART: S1, S2 sounds are very distant. ABDOMEN: Obese, decreased bowel sounds. No guarding. EXTREMITIES: Show no clubbing, cyanosis or edema. She has cyanosis of her toes , but not her fingers. NEUROLOGIC: She is obtunded, speaking very softly (and very short of breath). LABORATORY DATA: Sodium 139, potassium 3.2, BUN 10, creatinine 0.8, lactic acid 1.4, magnesium 1.9. Normal liver tests, normal bilirubin. Troponin not detectable at 0.04. BNP 258. There has never been a prior BNP done here. No INR was done. White blood count 25.8 with a marked left shift with 23% neutrophils, hemoglobin is 9.2 with MCV of 89, platelet count elevated at 467. EKG: Normal sinus rhythm and intermittent ventricular pacing, right IVCD and diffusely low voltage. There is no old EKG available for comparison. CHEST X-RAY: Diffuse hazy opacification of the left lung and a moderate left pleural effusion. There is no pneumothorax. There was a right central catheter that terminates in the mid superior vena cava. There are pacemaker wires seen. An abdomen and chest CT were done that showed: a large left pleural effusion and complete collapse of the left lower lobe and partial collapse of the lingula. There is fluid in the mid portion of the pancreas which could be postoperative changes versus fluid leak or abscess, she has a complete splenic infarct, she has a nonocclusive thrombus seen in the portal vein, no pelvic lymphadenopathy. IMPRESSION/DIAGNOSES 1. Hypotension, unspecified. This could be from septic shock, hypovolemic and cardiogenic shock. 2. Healthcare-associated pneumonia. 3. Pleural effusion, right-side and left lung collapse. The combination is causing severe respiratory distress. 4. Pancreatic tumor, malignant, removed and she had post-op complications. 5. Splenic infarct. 6. Anemia. 7. DM. PLAN: Admit the patient to the ICU. Obtain blood cultures and start empiric broad spectrum antibiotics to cover sepsis for abdominal pathogens and healthcare-acquired pneumonia. Continue to support her blood pressure with normal saline hydration and start pressors as needed to keep her MAP over 65. Obtain records from [facility] for detailed review. Obtain any records that are available regarding her wishes for her code status as there is no POLST at this hospital. CODE STATUS: FULL CODE. DEEP VENOUS THROMBOSIS PROPHYLAXIS: SCDs, no Lovenox due to the recent surgery and intraabdominal abnormalities. ATTESTATION: The patient is expected to be discharged or transferred to another facility within 96 hours: Yes. TD: 03/02/2018 21:22 NAYANA
--- NOTE | 2018-03-03 00:10 | CONSULTATION NOTE ---
DATE OF SERVICE: Physician: Fara Green MD CRITICAL CARE NOTE The patient was admitted to the ICU for possible septic shock versus hypovolemia versus cardiogenic shock. The patient had several episodes of witnessed apnea, the nurses saw three episodes, I witnessed two. The patient would start having breathing through pursed lips and then puffing her cheeks, became apneic, her eyes rolled back, she became cyanotic. She was bagged with an AMBU bag severaltimes and would awaken and state that she wanted to know what was happening. Her blood pressure was poor, palpable blood pressure of 80, heart rate of 122 in sinus tachycardia. Because of respiratory arrest, elective intubation was ordered. Dr. Nik Mays from the emergency room performed this using sedation, visualization of cords and it was atraumatic. The patient did have emesis of approximately 50-100 mL of bilious clear fluid. There were breath sounds present in both lung bases, no air heard in the abdomen. The patient was placed on a ventilator. At this point, her palpable blood pressure was approximately 60. During the intubation, her fluids were adjusted to use saline wide open, Levophed titrated up to maximum dose and Jg-Synephrine was started. The nurse was able to obtain from a friend the phone number to the daughter. I was able to reach the daughter's [id number] who gave me the daughter's cell phone. I left a message on the cell phone. The daughter called me back and we discussed the critical situation of the patient. The daughter described the course of events at [facility] and stated that toward the end of her stay there, the patient had filled out Advance Directives , indicating that she never wanted to be intubated. The patient did, however, want to have CPR and defibrillation and only temporary ventilation if it appeared that there was a reversible cause. We had no Advance Directives in the emergency room or in the ICU at the time of the above events. I indicated to the daughter that the mother's condition was poor and that survival was not expected. The daughter indicated that she would discuss the situation with family members, her brother and an aunt. Possible withdrawal of ventilator and comfort measures would then be requested later today. Critical care time including managing the respiratory arrest at the bedside, review of records, discussion with the daughter: 50 minutes. TD: 03/02/2018 21:27 MTDChristiano
[2018-03-03] MEDS: SODIUM CHLORIDE FLUSH 0.9% 10 ML SYRINGE IVP SCH ×3 (01:10→16:11)
[2018-03-03] MEDS: PHENYLEPHRINE 20 MG in SODIUM CHLORIDE 0.9% 248 ML IV ONE (02:02)
[2018-03-03] MEDS: D5.45NS W/20 MEQ KCL 1,000 ML IV SCH (04:52)
[2018-03-03] MEDS: PROPOFOL 1000 MG/100 ML 100 ML IV SCH (04:55)
[2018-03-03] MEDS: SODIUM CHLORIDE FLUSH 0.9% 10 ML SYRINGE IVP PRN ×5 (04:56→17:13)
[2018-03-03 06:37] LABS: BASOPHILS % (AUTO) 0.2 %; HGB - HEMOGLOBIN 10.3 g/dL (12.0-16.0); LYMPHOCYTES % (AUTO) 4.2 %; MEAN CORPUSCULAR HEMOGLOBIN 27.4 pg (27.0-31.0); MEAN CORPUSCULAR HGB CONC 29.9 g/dL (32.0-36.0); MEAN CORPUSCULAR VOLUME 91.5 fL (81.0-99.0); MEAN PLATELET VOLUME 9.5 fL (7.9-10.8); NEUTROPHILS % (AUTO) 89.6 %; PLT - PLATELET COUNT 408 10^3/uL (130-450); RED BLOOD COUNT 3.78 10^6/uL (4.20-5.40); RED CELL DISTRIBUTION WIDTH 16.2 % (12.0-15.0); WHITE BLOOD COUNT 31.4 x10^3/uL (4.8-10.8)
[2018-03-03 06:49] LABS: ALBUMIN 1.7 g/dL (3.2-5.5); ALBUMIN/GLOBULIN RATIO 0.5 (1.0-2.2); BILIRUBIN,TOTAL 0.5 mg/dL (0.2-1.0); CALCIUM 7.3 mg/dL (8.5-10.3); CREATININE 1.8 mg/dL (0.4-1.0); MAGNESIUM 1.6 mg/dL (1.7-2.8); TOTAL PROTEIN 4.9 g/dL (6.7-8.2)
[2018-03-03] MEDS ORDERED: MAGNESIUM SULFATE 2 GRAM 2 GM/50 ML BAG IV ONE (06:55)
[2018-03-03 07:11] LABS: ABNORMAL LYMPHS % (MANUAL) 0 %
[2018-03-03 07:42] LABS: ABG PH 7.33 (7.35-7.45)
[2018-03-03 07:43] LABS: ABG BASE EXCESS -4.4 mmol/L (-2.0-3.0); ABG HCO3 21.2 mmol/L (22.0-26.0); ABG OXYGEN SATURATION 95 % (94-98); ABG PCO2 41 mmHg (34-45); ABG PO2 77 mmHg (80-100); ABG TCO2 22.4 MMOL/L (21.0-29.0); ALLEN TEST POSITIVE
[2018-03-03] MEDS: PANTOPRAZOLE 40 MG VIAL IVP SCH (08:14)
[2018-03-03 09:03] LABS: BAND NEUTROPHILS % (MANUAL) 3 %; LYMPHOCYTES # (MANUAL) 1.3 10^3/uL (1.5-3.5); LYMPHOCYTES % (MANUAL) 4 %; MONOCYTES # (MANUAL) 1.3 10^3/uL (0.0-1.0); NEUTROPHILS # (MANUAL) 28.9 10^3/uL (1.5-6.6); NEUTROPHILS % (MANUAL) 89 %; PLATELET ESTIMATE, MANUAL NORMAL (130-450,000) (NORMAL); RBC MORPHOLOGY (MULTIPLE) 1+ ANISOCYTOSIS (NORMAL)
[2018-03-03 09:04] LABS: DIFFERENTIAL COMMENT MANUAL DIFFERENTIAL
[2018-03-03 09:53] VITALS: BP 123/70
[2018-03-03] MEDS: MORPHINE 2 MG/ML SYRINGE IVP PRN ×6 (11:02→17:13)
[2018-03-03] MEDS: LORazepam 2 MG/ML VIAL IVP PRN ×5 (11:02→16:56)
[2018-03-03] MEDS ORDERED: SODIUM CHLORIDE INHALATION 3 ML NEB ONE (11:48)
--- NOTE | 2018-03-03 12:29 | PROVIDER PROGRESS NOTE ---
Hospitalist Cross-cover Note - Cross-Cover Note Cross-Cover Note: The patient was alert and awake on the ventilator this morning. It was expressed to the nocturnal wrist by the patient's daughter that treatment should be continued until the patient's sister arrives and then care could be withdrawn. The patient's sister was at bedside this morning but to our surprise the patient was alert and awake. Patient was still on a ventilator and requiring high doses of levo fed to maintain adequate blood pressure. The patient expressed that she wanted to be extubated and wanted withdrawal of care. The patient was extubated as per her wishes with her sister at bedside. The patient's medications were discontinued and she was made comfort care with morphine and Ativan. The patient is still alert minutes after her extubation however she does appear to be more and more lethargic and appears to be imminent at this time. The patient will be kept comfortable.
--- NOTE | 2018-03-03 17:36 | DISCHARGE SUMMARY ---
Discharge Summary Admit Date: 03/02/18 Discharge Date: 03/03/18 (Time of : 17:15) Code Status: Do Not Attempt Resuscitation Discharge Disposition: 20 - DIAGNOSES Admission Diagnoses: 1. Septic shock 2. Healthcare associated pneumonia 3. Pleural effusion 4. Pancreatic cancer 5. Splenic infarct 6. Anemia 7. Diabetes Discharge Diagnoses with Status of Each Condition: 1. Cardiopulmonary arrest: 2. Acute respiratory failure with hypoxia: 3. Septic shock: 4. Healthcare associated pneumonia: 5. Pleural effusion: 6. Pancreatic cancer: 7. Splenic infarct: 8. Anemia: 9. Diabetes mellitus: - HPI History of Present Illness: Patient is a 72-year-old female with past medical history significant for obesity, COPD, prior [place], CHF with unknown ejection fraction who was diagnosed with pancreatic tumor and underwent partial resection of the tumor on 02/11/2018 at [facility]. Postoperative complications were bleeding internally, healthcare associated pneumonia, sepsis, she developed diabetes and had a cardiac arrest. The patient was stabilized at [facility] and transferred to [facility] for rehabilitation and oral antibiotics. She was there for approximately 2 days and it is unknown how much activity or participation she had in her rehab but she started to develop increasing shortness of breath and was severely short of breath earlier in the day and became hypotensive at which point she was brought to the emergency department. In the emergency department patient's blood pressure was in the 90s with heart rate in the 70s-110. The emergency room physician spoke with the surgeon at [facility] and reviewed the case. There were no beds available for transfer. Therefore the patient was admitted to [facility] in the intensive care unit with septic shock. Shortly after she was admitted the patient had several episodes of witnessed apnea and continued to be hypotensive. The patient's POLST form stated that she was a full code patient was intubated for acute respiratory failure and placed on maximum dose of levo fed and Jg-Synephrine given her septic shock. - HOSPITAL COURSE Hospital Course: The patient was initially treated very aggressively with vent care, pressors and broad-spectrum antibiotics as well as fluid. After the hospitalist physician spoke with the patient's daughter the patient's daughter made it clear that the patient would not want to continue treatment this way but she asked that we continue aggressive treatment until the patient's sister is able to get to the hospital. The patient continued to be in critical condition but was stabilized by the morning when her sister arrived at the hospital. The patient was alert and awake enough to try to speak on the ventilator and write down her requests. The patient asked that we extubate her and stop all medical treatment knowing that this likely meant that was imminent. The patient no longer wanted to suffer and she made that clear to both her family and to us. The patient was extubated and we withdrew care. Initially the patient was alert and able to talk to her sister but slowly she became less alert and less responsive. At 17:15 the patient took her last breath with her sister by her bedside. The patient was kept comfortable and her last hours with morphine and Ativan. In the end the patient did not struggle and we were able to honor the patient's wishes. - ALLERGIES Allergies/Adverse Reactions: Allergies Allergy/AdvReac Type Severity Reaction Status Date / Time venom-honey bee Allergy Severe Respiratory Verified 01/16/18 04:49 [bee venom (honey bee)] - MEDICATIONS Home Medications: Ambulatory Orders Medication Instructions Recorded Confirmed Aspirin [Aspir 81] 81 mg PO DAILY 03/08/15 03/02/18 Carvedilol [Coreg] 25 mg PO BID 06/15/17 03/02/18 Acetaminophen 650 mg PO Q4H PRN 03/02/18 03/02/18 Atorvastatin Calcium 40 mg PO QPM 03/02/18 03/02/18 Budesonide/Formoterol Fumarate 2 puffs INH BID 03/02/18 03/02/18 [Symbicort 160-4.5 Mcg Inhaler] Citalopram Hydrobromide 20 mg PO DAILY 03/02/18 03/02/18 [Citalopram HBr] Docusate Sodium 100 mg PO BID PRN 03/02/18 03/02/18 Fluticasone [Flonase] 1 spray ROD BID 03/02/18 03/02/18 Folic Acid 1 mg PO DAILY 03/02/18 03/02/18 Insulin Glargine [Lantus Solostar] 18 units SUBQ QPM 03/02/18 03/02/18 Insulin Lispro [Humalog] 3 units SUBQ TIDWM 03/02/18 03/02/18 Lipase/Protease/Amylase [Velvet Dr 1 tab PO TIDWM 03/02/18 03/02/18 6,000 Units Capsule] Lisinopril 20 mg PO DAILY 03/02/18 03/02/18 Mag Hydrox/Al Hydrox/Simeth 30 ml PO Q6H PRN 03/02/18 03/02/18 [Antacid Suspension] Magnesium Oxide [Mag Ox] 400 mg PO DAILY 03/02/18 03/02/18 Methocarbamol 500 - 1,500 mg PO TID PRN 03/02/18 03/02/18 Mirabegron [Myrbetriq] 25 mg PO DAILY 03/02/18 03/02/18 Multivitamin W/Minerals [Theragran 1 tab PO DAILY 03/02/18 03/02/18 M] Ondansetron [Ondansetron Odt] 4 mg PO Q6H PRN 03/02/18 03/02/18 Oxycodone HCl 2.5 - 10 mg PO Q3H PRN 03/02/18 03/02/18 - PHYSICAL EXAM AT DISCHARGE Physical Exam Other/Comments: Patient is lying motionless. Extremities are cold. No breath sounds are heard. No heart sounds are heard. Patient has no pupillary reflexes. Patient has no corneal reflex. Pulses cannot be felt. There are no bowel sounds. Patient has . - LABS Result Diagrams: 03/03/18 05:00 03/03/18 05:00 Other Lab Results: Laboratory Results WBC 31.4 x10^3/uL (4.8-10.8) H 03/03/18 05:00 RBC 3.78 10^6/uL (4.20-5.40) L 03/03/18 05:00 Hgb 10.3 g/dL (12.0-16.0) L 03/03/18 05:00 Hct 34.6 % (37.0-47.0) L 03/03/18 05:00 MCV 91.5 fL (81.0-99.0) 03/03/18 05:00 MCH 27.4 pg (27.0-31.0) 03/03/18 05:00 MCHC 29.9 g/dL (32.0-36.0) L 03/03/18 05:00 RDW 16.2 % (12.0-15.0) H 03/03/18 05:00 Plt Count 408 10^3/uL (130-450) 03/03/18 05:00 MPV 9.5 fL (7.9-10.8) 03/03/18 05:00 Neut # (Auto) Not Reportable 03/03/18 05:00 Lymph # (Auto) Not Reportable 03/03/18 05:00 [place] # (Auto) Not Reportable 03/03/18 05:00 Eos # (Auto) Not Reportable 03/03/18 05:00 Baso # (Auto) Not Reportable 03/03/18 05:00 Absolute Nucleated RBC Not Reportable 03/03/18 05:00 Total Counted 100 03/03/18 05:00 Band Neuts % (Manual) 3 % (0-10) 03/03/18 05:00 Abnorm Lymph % (Manual) 0 % 03/03/18 05:00 Nucleated RBC % Not Reportable 03/03/18 05:00 Neutrophils # (Manual) 28.9 10^3/uL (1.5-6.6) H 03/03/18 05:00 Lymphocytes # (Manual) 1.3 10^3/uL (1.5-3.5) L 03/03/18 05:00 Monocytes # (Manual) 1.3 10^3/uL (0.0-1.0) H 03/03/18 05:00 Eosinophils # (Manual) 0.0 10^3/uL (0-0.7) 03/03/18 05:00 Basophils # (Manual) 0.0 10^3/uL (0-0.1) 03/03/18 05:00 Nucleated RBCs 2 % 03/03/18 05:00 Differential Comment MANUAL DIFFERENTIAL 03/03/18 05:00 Manual Slide Review Indicated 03/02/18 14:20 Platelet Estimate NORMAL (130-450,000) (NORMAL) 03/03/18 05:00 Platelet Morphology NORMAL APPEARANCE (NORMAL) 03/02/18 14:20 RBC Morph Micro Appear 1+ ANISOCYTOSIS (NORMAL) 1+ HYPOCHROMASIA (NORMAL) 1+ MICROCYTOSIS (NORMAL) 03/02/18 14:20 RBC Morph Micro Appear 1+ ANISOCYTOSIS (NORMAL) 1+ HYPOCHROMASIA (NORMAL) 1+ MICROCYTOSIS (NORMAL) 03/02/18 14:20 RBC Morph Micro Appear 1+ ANISOCYTOSIS (NORMAL) 03/03/18 05:00 Bld Gas Analysis Time 0730 03/03/18 07:30 Sample Site RIGHT RADIAL 03/03/18 07:30 ABG pH 7.33 (7.35-7.45) L 03/03/18 07:30 ABG pCO2 41 mmHg (34-45) 03/03/18 07:30 ABG pO2 77 mmHg (80-100) L 03/03/18 07:30 ABG HCO3 21.2 mmol/L (22.0-26.0) L 03/03/18 07:30 ABG Total CO2 22.4 MMOL/L (21.0-29.0) 03/03/18 07:30 ABG O2 Saturation 95 % (94-98) 03/03/18 07:30 ABG Oximetry Spot Check 100 % 03/02/18 21:05 ABG Base Excess -4.4 mmol/L (-2.0-3.0) L 03/03/18 07:30 Ravin Test POSITIVE 03/03/18 07:30 Respiration Rate 22 b/min 03/03/18 07:30 O2 Delivery Device VENTILATOR 03/03/18 07:30 Vent Mode SIMV 03/03/18 07:30 FiO2 40.00 03/03/18 07:30 Tidal Volume 415 mL 03/03/18 07:30 PEEP 0 cmH2O 03/02/18 21:05 Pressure Support Vent 10 cmH2O 03/03/18 07:30 Sodium 137 mmol/L (135-145) 03/03/18 05:00 Potassium 4.2 mmol/L (3.5-5.0) 03/03/18 05:00 Chloride 107 mmol/L (101-111) 03/03/18 05:00 Carbon Dioxide 22 mmol/L (21-32) 03/03/18 05:00 Anion Gap 8.0 (6-13) 03/03/18 05:00 BUN 16 mg/dL (6-20) 03/03/18 05:00 Creatinine 1.8 mg/dL (0.4-1.0) H 03/03/18 05:00 Estimated GFR (MDRD) 28 (>89) L 03/03/18 05:00 Glucose 348 mg/dL (70-100) H 03/03/18 05:00 Lactic Acid 2.0 mmol/L (0.5-2.2) 03/02/18 21:03 Calcium 7.3 mg/dL (8.5-10.3) L 03/03/18 05:00 Phosphorus 4.6 mg/dL (2.5-4.6) 03/03/18 05:00 Magnesium 1.6 mg/dL (1.7-2.8) L 03/03/18 05:00 Total Bilirubin 0.5 mg/dL (0.2-1.0) 03/03/18 05:00 AST 35 IU/L (10-42) 03/03/18 05:00 ALT 15 IU/L (10-60) 03/03/18 05:00 Alkaline Phosphatase 69 IU/L (42-121) 03/03/18 05:00 Troponin I < 0.04 ng/mL (<0.49) 03/02/18 14:20 B-Natriuretic Peptide 258 pg/mL (5-100) H 03/02/18 14:20 Total Protein 4.9 g/dL (6.7-8.2) L 03/03/18 05:00 Albumin 1.7 g/dL (3.2-5.5) L 03/03/18 05:00 Globulin 3.2 g/dL (2.1-4.2) 03/03/18 05:00 Albumin/Globulin Ratio 0.5 (1.0-2.2) L 03/03/18 05:00 Lipase 70 U/L (22-51) H 03/02/18 14:20 Blood Type O POSITIVE 03/02/18 14:55 Blood Type Recheck O POSITIVE 03/02/18 14:20 Antibody Screen NEGATIVE 03/02/18 14:55 - DIAGNOSTIC IMAGING Diagnostic Imaging Results: Final report reviewed Diagnostic Imaging Results Comments: EXAM: XR/CXR1VW ([id number]) Procedure Date: 03/02/2018 Accession Number: [id number] / [id number] Procedure: XR - Chest 1 View X-Ray CPT Code: 70452 FULL RESULT: EXAM: CHEST RADIOGRAPHY EXAM DATE: 03/02/2018 02:30 PM. CLINICAL HISTORY: Dyspnea; post op 2 1/2 weeks. COMPARISON: 01/16/2018. TECHNIQUE: 1 view. FINDINGS: Lungs/Pleura: Layering opacity in the left hemithorax. Right lung appears clear. No pneumothorax. Mediastinum: There is a left chest pacemaker device. The leads appear unchanged overlying the right atrium and right ventricle. Heart size is borderline. There is mild/moderate aortic atherosclerotic calcification. Other: None. IMPRESSION: New layering left pleural effusion of [id number]-am-[id number] size with left lower lobe atelectasis, edema or pneumonia. EXAM: [id number] US/VENL ([id number]) Procedure Date: 03/02/2018 Accession Number: [id number] / [id number] Procedure: US - Duplex Ext Veins Left CPT Code: FULL RESULT: EXAM: Duplex Ext Veins Left DATE: 03/02/2018 3:21 PM CLINICAL HISTORY: left leg pain; post op 2 1/2 weeks COMPARISON: None. TECHNIQUE: Real-time sonographic vascular imaging was performed by the fishing accessories maker through the lower extremity utilizing both color-flow and Doppler spectral analysis. Multiple life assurance representative static images were saved for review. FINDINGS: Left side Common Femoral Vein (CFV): Normal. Superficial Femoral Vein (SFV) Prox: Normal. Superficial Femoral Vein (SFV) Mid: Normal. Superficial Femoral Vein (SFV) Dist: Normal. Popliteal Vein: Normal. Posterior Tibial Veins: Normal. Peroneal Veins: Normal. Other: None. IMPRESSION: No evidence for deep venous thrombosis left lower extremity. EXAM: [id number] XR/CXRLP ([id number]) Procedure Date: 03/02/2018 Accession Number: [id number] / [id number] Procedure: XR - Chest for Line Placement CPT Code: FULL RESULT: EXAM: CHEST RADIOGRAPHY EXAM DATE: 03/02/2018 05:35 PM. CLINICAL HISTORY: Right IJ triple lumen placed for hypotension. COMPARISON: CT of same day. TECHNIQUE: 1 view. FINDINGS: Lungs/Pleura: Diffuse hazy opacification of the left lung with moderate left pleural effusion and adjoining lung opacification. Right lung appears clear. There is no pneumothorax. Mediastinum: Heart and mediastinal contours are unremarkable. Other: Right IJ line tip terminates at least within the mid SVC. Tip is obscured by pacer lines IMPRESSION: Right IJ line tip terminates at least within the mid SVC. Tip is obscured by pacer lines. Left pleural effusion and adjoining likely atelectasis, better demonstrated on CT of same day. EXAM: CT/CHTW ([id number]) Procedure Date: 03/02/2018 Accession Number: [id number] / [id number] Procedure: CT - Chest W/ CPT Code: FULL RESULT: EXAM: CT CHEST EXAM DATE: 03/02/2018 05:51 PM. CLINICAL HISTORY: Effusion and infiltrate left lung. COMPARISONS: 11/03/17. TECHNIQUE: Routine helical CT imaging was performed through the chest. IV contrast: 100 cc Isovue-300. Reconstructions: Coronal and sagittal. In accordance with CT protocol optimization, one or more of the following dose reduction techniques were utilized for this exam: automated exposure control, adjustment of mA and/or KV based on patient size, or use of iterative reconstructive technique. FINDINGS: Lungs/Pleura: New large left pleural effusion. There is near complete collapse of the left lower lobe and partial collapse of the lingula. Trace right pleural fluid with dependent atelectasis. Mediastinum: Imaged portions of the thyroid demonstrate ill-defined subcentimeter nodularity, likely benign. Thoracic aorta and main pulmonary artery are normal caliber.No central PE. Heart size is within normal limits. Coronary artery calcifications are present. Pacer device with leads in the right atrial appendage and right ventricle. No pericardial effusion. Lymph Nodes: No mediastinal, hilar, or axillary adenopathy. Bones: No suspicious osseous lesions. Multilevel degenerative changes. Visualized chest wall is grossly unremarkable. IMPRESSION: New large left pleural effusion. Near complete collapse of the left lower lobe and partial collapse in the lingula. EXAM: CT/ABPEW ([id number]) Procedure Date: 03/02/2018 Accession Number: [id number] / [id number] Procedure: CT - Abdomen/Pelvis W/ CPT Code: FULL RESULT: EXAM: CT ABDOMEN AND PELVIS EXAM DATE: 03/02/2018 05:51 PM. CLINICAL HISTORY: Low BP; post op pancreatic surgery. COMPARISONS: 11/03/17. TECHNIQUE: Routine helical CT imaging was performed through the abdomen and pelvis. IV contrast: ISOVUE 300 100mL. Enteric contrast: No. Reconstructions: Coronal and sagittal. In accordance with CT protocol optimization, one or more of the following dose reduction techniques were utilized for this exam: automated exposure control, adjustment of mA and/or KV based on patient size, or use of iterative reconstructive technique. FINDINGS: ABDOMEN: Liver: Unremarkable. Spleen: The spleen is newly hypoenhancing and enlarged, with small amount of peripheral enhancement remaining. Splenic artery and vein are not visualized. Pancreas: Status post mid body pancreatic resection. Portion of the pancreatic tail is present. Pancreatic head remains. There is a new 15.7 x 9.0 cm fluid collection in the resection bed. Gallbladder/Bile Ducts: Status post cholecystectomy. Biliary tree is normal caliber. Adrenal Glands: Stable 2.4 cm nodule in the left adrenal gland, unchanged since at least 2014, likely benign. Right adrenal gland is unremarkable. Kidneys: No mass, calculi, or hydronephrosis. Peritoneum/Mesentery/Bowel: New 15.7 x 9.0 cm fluid collection in the resection bed. Left lower quadrant colostomy is present with parastomal hernia containing nonobstructed bowel. Lymph nodes: No mesenteric, periportal, or retroperitoneal lymphadenopathy. Vasculature: Abdominal aorta is nonaneurysmal. There is nonocclusive thrombus in the portal vein. Hepatic veins are patent. PELVIS: The bladder is unremarkable for the degree of distention. Uterus is absent. Small amount of free fluid. Cecum is within the pelvis. Nonspecific presacral thickening is present, similar to prior from . No pelvic lymphadenopathy. Status post resection of the rectum and sigmoid. End colostomy in the left lower quadrant. Bones: No suspicious osseous lesions. IMPRESSION: Diffuse splenic infarction. Status post pancreatic body resection. Large fluid collection in the pancreatic resection bed. It is uncertain to what extent this reflects a postoperative seroma, infection and/or pancreatic duct leak. Nonocclusive thrombus in the portal vein. - FOLLOW UP Follow Up: Remains released to home. - TIME SPENT Time Spent in Discharge (Minutes): 55
--- NOTE | 2018-03-03 17:54 | ADVANCE CARE PLANNING NOTE ---
Advance Care Planning - Date/Time Date: 03/03/18 Time: 08:30 - Purpose of encounter Text: To establish goals of care and a treatment plan for the patient given her critically ill status. - Parties in attendance Parties in attendance: Patients sister Ani and patient. - Decisional capacity Decisional capacity of: Both patients sister and patient have full decision making capacity. We will defer decisions to patient as she is alert and awake, willing to make her own decisions. She is on ventilator so only able to mouth words but is able to write on piece of paper and express herself. - Subjective/Patient's story Subjective/Patient's story: Patient is a 72-year-old female with past medical history significant for obesity, COPD, prior [place], CHF with unknown ejection fraction who was diagnosed with pancreatic tumor and underwent partial resection of the tumor on 02/11/2018 at [facility]. Postoperative complications were bleeding internally, healthcare associated pneumonia, sepsis, she developed diabetes and had a cardiac arrest. The patient was stabilized at [facility] and transferred to [facility] for rehabilitation and oral antibiotics. She was there for approximately 2 days and it is unknown how much activity or participation she had in her rehab but she started to develop increasing shortness of breath and was severely short of breath earlier in the day and became hypotensive at which point she was brought to the emergency department. In the emergency department patient's blood pressure was in the 90s with heart rate in the 70s-110. The emergency room physician spoke with the surgeon at [facility] and reviewed the case. There were no beds available for transfer. Therefore the patient was admitted to [facility] in the intensive care unit with septic shock. Shortly after she was admitted the patient had several episodes of witnessed apnea and continued to be hypotensive. The patient's POLST form stated that she was a full code patient was intubated for acute respiratory failure and placed on maximum dose of levo fed and Jg-Synephrine given her septic shock. Now patient is alert and awake despite being on pressors, fluids, antibiotics and sedation with propofol. She is also intubated. She does not want to continue to suffer or have prolongation of her life at this point. She wants us to keep her out of pain and does not want to be intubated any longer and does not want any further treatment. She would like us to withdraw care. She understands that this means she will . - Objective/Medical story Objective/Medical Story: Patient is a 72-year-old female with past medical history significant for obesity, COPD, prior [place], CHF with unknown ejection fraction who was diagnosed with pancreatic tumor and underwent partial resection of the tumor on 02/11/2018 at [facility]. Postoperative complications were bleeding internally, healthcare associated pneumonia, sepsis, she developed diabetes and had a cardiac arrest. The patient was stabilized at [facility] and transferred to [facility] for rehabilitation and oral antibiotics. She was there for approximately 2 days and it is unknown how much activity or participation she had in her rehab but she started to develop increasing shortness of breath and was severely short of breath earlier in the day and became hypotensive at which point she was brought to the emergency department. In the emergency department patient's blood pressure was in the 90s with heart rate in the 70s-110. The emergency room physician spoke with the surgeon at [facility] and reviewed the case. There were no beds available for transfer. Therefore the patient was admitted to [facility] in the intensive care unit with septic shock. Shortly after she was admitted the patient had several episodes of witnessed apnea and continued to be hypotensive. The patient's POLST form stated that she was a full code patient was intubated for acute respiratory failure and placed on maximum dose of levo fed and Jg-Synephrine given her septic shock. - Goals of Care Goals of care determinations: The patient is alert and awake despite being on pressors, fluids, antibiotics and sedation with propofol. She is also intubated. She is able to communicate by writing on a piece of paper. She expresses clearly that she does not want to continue to suffer or have prolongation of her life at this point. She wants us to keep her out of pain and does not want to be intubated any longer and does not want any further treatment. She would like us to withdraw care. She understands that this means she will . - Plan Plan: Withdraw care. Extubate. Stop all medications that are prolonging patients life including pressors, fluids and antibiotics. Comfort care with morphine and ativan. Keep patient out of pain and comfortable. Allow patient to smoothly transition from life to . - Code Status Code Status: Do Not Attempt Resuscitation - Time Spent on Advance Care Planning Time spent on advance care plannin Minutes.
== END 2018-03-03 17:15 | disposition expired | DRG 871 ==
LOC: EDUNIT# → ED 13:36 → ICU 16:56
PROVIDERS: ADMIT Internal Medicine; ATTEND Internal Medicine
PROC: 5A1945Z Respiratory Ventilation, 24-96 Consecutive Hours (ICD-10-PCS; principal; 2018-03-02)
PROC: 0BH17EZ Insertion of Endotracheal Airway into Trachea, Via Natural or Artificial Opening (ICD-10-PCS; 2018-03-02)
DX: A41.9 Sepsis, unspecified organism (principal); I95.9 Hypotension, unspecified; R06.02 Shortness of breath; J96.01 Acute respiratory failure with hypoxia; D72.829 Elevated white blood cell count, unspecified; J18.9 Pneumonia, unspecified organism; R65.21 Severe sepsis with septic shock; M79.7 Fibromyalgia; I46.9 Cardiac arrest, cause unspecified; J91.8 Pleural effusion in other conditions classified elsewhere; Z68.41 Body mass index [BMI] 40.0-44.9, adult; E89.1 Postprocedural hypoinsulinemia; Z87.19 Personal history of other diseases of the digestive system; C25.9 Malignant neoplasm of pancreas, unspecified; D73.5 Infarction of spleen; E13.9 Other specified diabetes mellitus without complications; Y95 Nosocomial condition; I50.9 Heart failure, unspecified; D64.9 Anemia, unspecified; J44.9 Chronic obstructive pulmonary disease, unspecified; E66.9 Obesity, unspecified; Y83.8 Other surgical procedures as the cause of abnormal reaction of the patient, or of later complication, without mention of misadventure at the time of the procedure; Z66 Do not resuscitate; Z90.411 Acquired partial absence of pancreas; I25.2 Old myocardial infarction; Z79.82 Long term (current) use of aspirin; Z79.51 Long term (current) use of inhaled steroids; Z79.4 Long term (current) use of insulin; Z79.891 Long term (current) use of opiate analgesic; Z79.899 Other long term (current) drug therapy; Z98.890 Other specified postprocedural states; Z95.5 Presence of coronary angioplasty implant and graft; Z95.0 Presence of cardiac pacemaker; Z86.74 Personal history of sudden cardiac arrest
CPT/HCPCS: 36415; 36600; 51701; 71045; 71260; 74177; 80053; 82803; 83605; 83690; 83735; 83880; 84100; 84484; 85025; 86850; 86900; 86901; 87150; 93005; 94002; 94003; 94640; 94664; 96361; 96365; 99284; 99291